=== PATIENT | male | born 1975 | race Caucasian/White ===

== ENCOUNTER 2017-12-30 23:36 | Emergency (ER) | payer SELFPAY ==
[2017-12-31 01:08] LABS: #Basophils 0.1 thou/uL (0.0-0.2); #Monocytes 0.7 thou/uL (0.11-0.59); #Neutrophils 2.9 thou/uL (1.40-6.50); %Basophils 1.5 % (0.0-1.0); %Eosinophils 0.2 % (0.0-10.0); %Lymphocytes 45.3 % (21.0-51.0); %Monocytes 9.9 % (0.0-10.0); %Neutrophils 43.1 % (42.0-75.0); Hemoglobin 14.8 g/dL (14.0-18.0); Mean Corpuscular HGB CONC 31.6 g/dL (32.0-36.0); Mean Corpuscular Volume 85.6 fL (78.0-98.0); Mean Platelet Volume 7.2 fL (7.4-10.4); Platelet Count 274 thou/uL (130-400); RBC Distribution Width 13.5 % (11.5-14.5); Red Blood Cell (RBC) Count 5.48 mill/uL (4.70-6.10); White Blood Cell (WBC) Count 6.7 thou/uL (4.8-10.8)
[2017-12-31 01:29] LABS: ALT (SGPT) 26 U/L (8-55); AST (SGOT) 30 U/L (5-34); Albumin 3.9 g/dL (3.5-5.0); Alkaline Phosphatase 40 U/L (40-150); Anion Gap 12 mmol/L (10-20); BUN (Urea Nitrogen) 16 mg/dL (8.9-20.6); Bilirubin, Total 0.7 mg/dL (0.2-1.2); Calc. Creatinine Clearance 0 mL/min (70-130); Calcium 9.1 mg/dL (7.8-10.44); Carbon Dioxide 24 mmol/L (22-29); Chloride 106 mmol/L (98-107); Estimated GFR-MDRD 62; Globulin 3.5 g/dL (2.4-3.5); Glucose 105 mg/dL (70-105); Potassium 3.7 mmol/L (3.5-5.1); Protein, Total 7.4 g/dL (6.0-8.3); Sodium 138 mmol/L (136-145)
[2017-12-31 01:37] LABS: CKMB 1.9 ng/mL (0-6.6); Troponin I Less than 0.010 ng/mL (< 0.028)
[2017-12-31] MEDS ORDERED: ISOVUE-370 76%-LOCM 1 ML ONE (13:23)
--- NOTE | 2017-12-31 14:38 | ULT ---
PRELIMINARY REPORT/[facility]/EMERGENTY AFTER-HOURS PROCEDURE US Duplex Left Lower Extremity Veins CLINICAL HISTORY: 42 years old, male; Pain and signs and symptoms; Edema, localized; Lower extremity, left; Other: Left ankle; Additional info: HX pe TECHNIQUE: Real-time duplex ultrasound scan of the left lower extremity veins integrating B-mode two dimensional vascular structure, Doppler spectral analysis, color flow Doppler imaging and compression. COMPARISON: No relevant prior studies available. FINDINGS: Limitations: Limited study due to patient body habitus. Deep veins: Unremarkable. No DVT in the visualized common femoral, femoral, proximal deep femoral or popliteal veins. The veins demonstrate normal color flow, are normally compressible, with normal phas ic flow and/or augmentation response. Superficial veins: Unremarkable. No thrombus in the visualized great saphenous vein. Soft tissues: No acute findings. No popliteal cyst. IMPRESSION: 1. Limited study due to patient body habitus. 2. No evidence of deep venous thrombosis in the left lower extremity on current study. Thank you for allowing us to participate in the care of your patient. Dictated and Authenticated by: Abrahan Tapia MD 12/31/2017 2:31 AM Central Time ([place] & [place]) FINAL REPORT VENOUS DOPPLER ULTRASOUND OF THE LEFT LOWER EXTREMITY: I agree with the preliminary report given by Dr. Abrahan Tapia of [facility]. POS: [facility]
--- NOTE | 2017-12-31 14:40 | CT ---
PRELIMINARY REPORT/[facility]/EMERGENTY AFTER-HOURS PROCEDURE CT Angiography Chest With Intravenous Contrast CLINICAL HISTORY: 42 years old, male; Pain; Other: Lt leg swelling /pain; Patient HX: Patient presents for evaluation o f pain, patient presents for evaluation of swelling TECHNIQUE: Axial computed tomographic angiography images of the chest with intravenous contrast using pulmonary embolism protocol. MIP reconstructed images were created and reviewed. COMPARISON: No relevant prior studies available. FINDINGS: Pulmonary arteries: No acute findings. No evidence of pulmonary embolism. Aorta: No acute findings. Ectatic ascending aorta. Lungs: No acute findings. No mass. No consolidation. Left upper lobe calcified granuloma. Pleural space: No acute findings. No effusion. No pneumothorax. Heart: No acute findings. No significant cardiomegaly. No significant pericardial effusion. Bones/joints: No acute fracture. No dislocation. Soft tissues: No acute findings. Lymph nodes: No lymphadenopathy. Left hilar and mediastinal calcified granulomas. IMPRESSION: No acute findings. No evidence of pulmonary embolism. Thank you for allowing us to participate in the care of your patient. Dictated and Authenticated by: Willis Ansari MD 12/31/2017 5:07 AM Central Time ([place] & [place]) CT ANGIOGRAM CHEST: HISTORY: Chest pain. COMPARISON: 12/06/2015 TECHNIQUE: A CT angiogram of the chest is performed in the axial plane. Three-dimensional reformatted images ar e submitted for interpretation. FINDINGS: No evidence of pulmonary artery embolism to the level of the lobar arteries. Evaluation of the segme ntal and subsegmental arteries is limited due to poor timing of contrast bolus. Calcified granuloma in the left upper lobe is noted. This report is in agreement with the preliminary report by [facility]. POS: [facility]
== END 2017-12-31 06:05 | disposition home or self-care (01) ==
LOC: ERS 23:36
DX: L03.116 Cellulitis of left lower limb (principal); E66.9 Obesity, unspecified; E03.9 Hypothyroidism, unspecified; Z86.711 Personal history of pulmonary embolism; E78.5 Hyperlipidemia, unspecified; I10 Essential (primary) hypertension; M10.9 Gout, unspecified; F32.9 Major depressive disorder, single episode, unspecified
CPT/HCPCS: 36415; 71275; 80053; 82553; 83605; 84484; 85025; 85379; 96360